=== PATIENT | male | born 1970 | race Caucasian/White ===

== ENCOUNTER 2020-10-19 22:12 | Inpatient (IN) | payer OTHER ==
[2020-10-20 00:32] LABS: BASOPHIL 0.2 % (0-2); EOSINOPHIL 0.3 % (0-5); HCT 39.4 % (42.0-52.0); HGB 13.4 g/dl (13.2-18.0); LYMPHOCYTE 7.8 % (15-48); MCH 27.3 pg (25.0-31.0); MCV 80.4 fL (78.0-100.0); MPV 10.5 fL (6.0-9.5); NEUTROPHIL 85.1 % (41-80); NRBC 0; PLT 201 K/uL (150-400); RDW 13.1 % (11.5-14.0); WBC 19.9 K/uL (4.0-10.5)
[2020-10-20 00:32] LABS: BILIRUBIN NEGATIVE (NEGATIVE); BLOOD 1+ Ery/uL (NEGATIVE); CLARITY CLEAR (CLEAR); COLOR YELLOW (YELLOW); GLUCOSE (U) 3+ mg/dL (NORMAL); LEUKOCYTES NEGATIVE Leu/uL (NEGATIVE); NITRITE NEGATIVE (NEGATIVE); PROTEIN TRACE (LOW) mg/dL (NEGATIVE); UROBILINOGEN 0.2 mg/dL (0.2-1.0); pH 6.5 (5.0-9.0)
[2020-10-20 00:36] LABS: SQUAMOUS EPITHELIAL CELLS RARE
[2020-10-20 00:42] LABS: INR 1.14 (0.9-1.2); PROTHROMBIN TIME 13.9 SECONDS (11.4-13.6)
[2020-10-20 00:43] LABS: PTT 36.7 SECONDS (22.2-34.7)
[2020-10-20 00:50] LABS: ALBUMIN 3.3 g/dL (3.4-5.0); BILIRUBIN - TOTAL 0.6 mg/dL (0.2-1.0); BUN/CREAT RATIO (CALC) 13.7 RATIO; CREATININE 1.17 mg/dL (0.67-1.17); GLOBULIN (CALCULATION) 4.4 g/dL; TOTAL PROTEIN 7.7 g/dL (6.4-8.2)
[2020-10-20 00:57] LABS: LACTIC ACID 1.4 mmol/L (0.4-1.9); POTASSIUM 4.2 mmol/L (3.5-5.1)
[2020-10-20] MEDS ORDERED: METFORMIN HCL500 MG PO (03:38)
[2020-10-20] MEDS ORDERED: LOPRESSOR50 MG PO (03:39)
[2020-10-20] MEDS ORDERED: PROTONIX 40MG T40 MG PO (03:40)
[2020-10-20] MEDS ORDERED: ASPIRIN325 MG PO (03:40)
[2020-10-20] MEDS ORDERED: ZESTRIL2.5 MG PO (03:40)
[2020-10-20] MEDS ORDERED: CRESTOR40 MG PO (03:41)
[2020-10-20] MEDS ORDERED: DICLOFENAC SODI75 MG PO (03:42)
[2020-10-20] MEDS ORDERED: SYNTHROID75 MCG PO (03:43)
[2020-10-20] MEDS ORDERED: EFFEXOR-XR 75 M75 MG PO (03:43)
[2020-10-20] MEDS ORDERED: TOUJEO MAX300 UNIT/1 PO (03:44)
[2020-10-20 08:46] LABS: BASOPHIL 0.2 % (0-2); EOSINOPHIL 0.4 % (0-5); HCT 35.2 % (42.0-52.0); HGB 11.6 g/dl (13.2-18.0); LYMPHOCYTE 5.8 % (15-48); MCH 26.9 pg (25.0-31.0); MCV 81.7 fL (78.0-100.0); MONOCYTE 6.4 % (0-12); MPV 10.1 fL (6.0-9.5); NEUTROPHIL 86.8 % (41-80); NRBC 0; PLT 180 K/uL (150-400); RBC 4.31 M/uL (4.70-6.00); RDW 13.2 % (11.5-14.0); WBC 17.1 K/uL (4.0-10.5)
[2020-10-20 09:10] LABS: BUN/CREAT RATIO (CALC) 13.1 RATIO; CREATININE 0.99 mg/dL (0.67-1.17); POTASSIUM 4.3 mmol/L (3.5-5.1)
[2020-10-21 05:52] LABS: BASOPHIL 0.3 % (0-2); EOSINOPHIL 0.3 % (0-5); HCT 35.8 % (42.0-52.0); LYMPHOCYTE 5.7 % (15-48); MCH 27.5 pg (25.0-31.0); MCHC 33.5 g/dL (32.0-36.0); MCV 82.1 fL (78.0-100.0); NEUTROPHIL 86.4 % (41-80); NRBC 0; PLT 193 K/uL (150-400); RBC 4.36 M/uL (4.70-6.00); RDW 13.2 % (11.5-14.0); WBC 12.3 K/uL (4.0-10.5)
[2020-10-21 07:32] LABS: BUN/CREAT RATIO (CALC) 14.6 RATIO; CREATININE 1.03 mg/dL (0.67-1.17); POTASSIUM 4.5 mmol/L (3.5-5.1)
--- NOTE | 2020-10-21 12:52 | NUR ---
Patient was provided a list of resources for his diabetic needs. He did state he is not a new diabetic. I told him to ask for case management if he has any discharge needs. Pt voiced understanding.
[2020-10-22 05:50] LABS: BASOPHIL 0.6 % (0-2); EOSINOPHIL 4.8 % (0-5); HCT 36.3 % (42.0-52.0); LYMPHOCYTE 17.1 % (15-48); MCH 27.1 pg (25.0-31.0); MCHC 33.1 g/dL (32.0-36.0); MCV 82.1 fL (78.0-100.0); MONOCYTE 13.7 % (0-12); MPV 9.5 fL (6.0-9.5); NEUTROPHIL 63.4 % (41-80); NRBC 0; PLT 224 K/uL (150-400); RBC 4.42 M/uL (4.70-6.00)
[2020-10-22 06:09] LABS: BUN/CREAT RATIO (CALC) 16.8 RATIO; CREATININE 0.95 mg/dL (0.67-1.17); POTASSIUM 4.3 mmol/L (3.5-5.1)
[2020-10-22] MEDS ORDERED: CLEOCIN300 MG PO (07:47)
[2020-10-22] MEDS ORDERED: METFORMIN HCL850 MG PO (07:47)
[2020-10-22] MEDS ORDERED: FLORANEX TABLE1 EACH PO (07:47)
[2020-10-22] MEDS ORDERED: KEFLEX250 MG PO (07:47)
--- NOTE | 2020-10-22 16:28 | NUR ---
DISCHARGE INSTRUCTIONS DISCUSSED WITH PATIENT. WOUND CLEANSED WITH SALINE, SOAP, CHLORAHEXIDINE ORDERED. IV REMOVED. PATIENT IN STABLE CONDITION. D/C HOME. NOTIFIED TO CALL [facility] ON SATURDAY
== END 2020-10-22 16:20 | disposition home or self-care (01) | DRG 872 ==
LOC: FER 22:12 → FMS 10-20 02:17
PROVIDERS: Allergy & Immunology Allergy; Emergency Medicine; Nurse Practitioner; ADMIT Internal Medicine
PROC: 0V95XZZ Drainage of Scrotum, External Approach (ICD-10-PCS; principal; 2020-10-19)
DX: A41.9 Sepsis, unspecified organism (principal); N49.2 Inflammatory disorders of scrotum; E11.65 Type 2 diabetes mellitus with hyperglycemia; Z20.822 Contact with and (suspected) exposure to COVID-19; I10 Essential (primary) hypertension; E78.5 Hyperlipidemia, unspecified; K21.9 Gastro-esophageal reflux disease without esophagitis; Z86.73 Personal history of transient ischemic attack (TIA), and cerebral infarction without residual deficits; Z98.890 Other specified postprocedural states; Z85.820 Personal history of malignant melanoma of skin; Z88.8 Allergy status to other drugs, medicaments and biological substances; Z91.030 Bee allergy status; Z79.84 Long term (current) use of oral hypoglycemic drugs; B95.1 Streptococcus, group B, as the cause of diseases classified elsewhere
CPT/HCPCS: 36415; 72193; 80048; 80053; 81001; 82962; 83036; 83605; 84145; 85025; 85610; 85730; 87040; 87070; 87077; 87088; 87186; 87205; 96365; 96368; 96375; 96376; J1170; J1650; J2405; J2543; J3370; J7030; J7050; J7120; Q9967; U0002